=== PATIENT | male | born 1970 | race Caucasian/White ===

== ENCOUNTER → 2023-05-04 | Outpatient (CLI) | payer BC ==
[2023-05-04 13:10] LABS: PROSTATIC SPECIFIC AG MONITOR 0.96 NG/ML (< 4.00)
== END ==
LOC: M LAB 11:10
DX: C61 Malignant neoplasm of prostate (principal)

== ENCOUNTER → 2023-06-22 | Outpatient (CLI) | payer BC ==
[~2023-06-22] MED LIST: ADDE20CA3 PO; CELE1CAP4 PO; MULT-100 PO; VITA-10 PO; VITA500C24 PO; VITAD400CA FT; VITMTA PO; WELLTAB38 PO; XANA1TAB2 PO
== END ==
LOC: M ONCR 10:36
PROVIDERS: ATTEND General Practice
DX: C61 Malignant neoplasm of prostate (principal); N52.9 Male erectile dysfunction, unspecified; R97.21 Rising PSA following treatment for malignant neoplasm of prostate; Z80.42 Family history of malignant neoplasm of prostate; Z71.2 Person consulting for explanation of examination or test findings; Z79.899 Other long term (current) drug therapy; Z77.29 Contact with and (suspected) exposure to other hazardous substances; Z90.79 Acquired absence of other genital organ(s); Z91.82 Personal history of military deployment; Z92.3 Personal history of irradiation

== ENCOUNTER → 2023-07-06 | Outpatient (CLI) | payer BC | LOC: M ONCR 15:34 | PROVIDERS: ATTEND General Practice | DX: C61 Malignant neoplasm of prostate (principal) | CPT/HCPCS: 36415; 84153; G0463 ==

== ENCOUNTER → 2024-01-18 | Outpatient (CLI) | payer BC ==
[~2024-01-18] MED LIST changes: +ADDE20TA PO; +BICA50TA9 PO
[2024-01-18] MEDS: LEUPROLIDE 45MG SYRINGE KIT (LUPRON DEPOT) (FOR ONCOLOGY) IM ONE (13:27)
== END ==
LOC: M ONCR 12:57
PROVIDERS: ATTEND General Practice
DX: C61 Malignant neoplasm of prostate (principal); Z90.79 Acquired absence of other genital organ(s); Z92.3 Personal history of irradiation; Z79.1 Long term (current) use of non-steroidal anti-inflammatories (NSAID); Z79.899 Other long term (current) drug therapy; Z71.2 Person consulting for explanation of examination or test findings
CPT/HCPCS: 96402; G0463; J9217

== ENCOUNTER → 2024-03-21 | Outpatient (CLI) | payer BC ==
[~2024-03-21] MED LIST changes: +BICA50TA4 PO; -BICA50TA9 PO
== END ==
LOC: M ONCR 10:59
PROVIDERS: ATTEND General Practice
DX: C61 Malignant neoplasm of prostate (principal); Z79.818 Long term (current) use of other agents affecting estrogen receptors and estrogen levels; Z90.79 Acquired absence of other genital organ(s)
CPT/HCPCS: 96402; G0463

== ENCOUNTER → 2024-05-30 | Outpatient (CLI) | payer BC | LOC: M RAD 09:33 | PROVIDERS: ATTEND Orthopaedic Surgery | DX: Z48.89 Encounter for other specified surgical aftercare (principal); M25.571 Pain in right ankle and joints of right foot | CPT/HCPCS: 78315; A9503 ==

== ENCOUNTER 2024-08-31 16:09 | Emergency (ER) | payer BC ==
[~2024-08-31] VITALS: Ht 175.3 cm; Wt 90.2 kg
[2024-08-31 16:11] VITALS: TEMP 97.2; O2SAT 100
[2024-08-31 16:14] VITALS: BP 162/90
[2024-08-31] MEDS ORDERED: KETOROLAC 30 MG/ML 1ML VIAL IM ONE (21:00)
[2024-08-31 21:34] LABS: BASO % 0.2 % (0.0-1.0); EOS # 0.2 10^3/uL (0.0-0.5); HEMATOCRIT 36.4 % (42.0-52.0); HEMOGLOBIN 12.2 g/dl (13.5-17.5); LYMPH # 2.2 10^3/uL (1.5-5.0); LYMPH % 27.3 % (24.0-44.0); MEAN CORPUSCULAR HEMOGLOBIN 30.3 pg (27.0-33.0); MEAN CORPUSCULAR HGB CONC 33.5 g/dl (32.0-36.5); MEAN CORPUSCULAR VOLUME 90.3 fl (80.0-96.0); MONO # 0.7 10^3/uL (0.0-0.8); MONO % 8.7 % (2.0-8.0); NEUTROPHILS % 61.4 % (36.0-66.0); PLATELET COUNT, AUTOMATED 364 10^3/uL (150-450); RED BLOOD COUNT 4.03 10^6/uL (4.30-6.10); WHITE BLOOD COUNT 8.2 10^3/uL (4.0-10.0)
[2024-08-31] MEDS: KETOROLAC 30 MG/ML 1ML VIAL IV ONE (21:44)
[2024-08-31 22:03] LABS: ALBUMIN 3.7 G/DL (3.2-5.2); ALKALINE PHOSPHATASE 76 U/L (40-129); ALT/SGPT 55 U/L (7.0-40); AST/SGOT 36 U/L (<34); BILIRUBIN,TOTAL 0.3 MG/DL (0.3-1.2); BLOOD UREA NITROGEN 14 MG/DL (9-23); CALCIUM LEVEL 9.3 MG/DL (8.5-10.1); CARBON DIOXIDE LEVEL 27 MMOL/L (20-31); CHLORIDE LEVEL 108 MMOL/L (98-107); CREATININE FOR GFR 0.69 MG/DL (0.70-1.30); GLOMERULAR FILTRATION RATE > 60.0 (>56); GLUCOSE, FASTING 82 MG/DL (60-100); POTASSIUM SERUM 4.3 MMOL/L (3.5-5.1); SODIUM LEVEL 142 MMOL/L (136-145); TOTAL PROTEIN 7.2 G/DL (5.7-8.2)
[2024-09-01] MEDS ORDERED: IBUP-1022 PO (20:02)
[2024-09-01] MEDS ORDERED: LIDO5OIN19 TOP (20:02)
[2024-09-01] MEDS ORDERED: CYCL10TA20 PO (20:03)
== END 2024-08-31 23:10 | disposition home or self-care (01) ==
LOC: M ED 16:09
DX: M94.0 Chondrocostal junction syndrome [Tietze] (principal); Z79.1 Long term (current) use of non-steroidal anti-inflammatories (NSAID); Z79.810 Long term (current) use of selective estrogen receptor modulators (SERMs); Z79.899 Other long term (current) drug therapy
CPT/HCPCS: 71111; 71250; 80053; 84484; 85025; 93005; 96374; 99284; J1885

== ENCOUNTER → 2024-10-17 | Outpatient (CLI) | payer BC ==
[~2024-10-17] MED LIST changes: +CYCL10TA20 PO; +IBUP-1022 PO; +LIDO5OIN19 TOP
[2024-10-17 14:32] LABS: PROSTATIC SPECIFIC AG MONITOR 0.2 NG/ML (< 4.00)
== END ==
LOC: M ONCR 13:09
PROVIDERS: ATTEND General Practice
DX: C61 Malignant neoplasm of prostate (principal); R31.9 Hematuria, unspecified; Z90.79 Acquired absence of other genital organ(s); Z92.3 Personal history of irradiation; Z92.29 Personal history of other drug therapy; Z79.1 Long term (current) use of non-steroidal anti-inflammatories (NSAID); Z79.899 Other long term (current) drug therapy
CPT/HCPCS: 36415; 84153; 84403; G0463